=== PATIENT | male | born 1945 | race Caucasian/White ===

== ENCOUNTER 2020-11-26 05:40 | Outpatient (CLI) | payer MEDICARE, OTHER ==
[~2020-11-26] VITALS: Ht 182.9 cm; Wt 95.5 kg
[2020-11-26] MEDS ORDERED: PRAV40TA2 PO (13:13)
[2020-11-26] MEDS ORDERED: DILT240C53 PO (13:13)
[2020-11-26] MEDS ORDERED: OMEP20TA7 PO (13:13)
[2020-11-26] MEDS ORDERED: MULT-1061 PO (13:13)
== END 2020-11-26 13:17 | disposition home or self-care (01) ==
LOC: PREOP 05:40
PROVIDERS: ATTEND Specialist
DX: Z01.818 Encounter for other preprocedural examination (principal)

== ENCOUNTER 2020-11-28 06:21 | Day surgery (SDC) | payer MEDICARE, OTHER ==
[~2020-11-28] VITALS: Ht 182.9 cm; Wt 95.5 kg
[~2020-11-28 06:21] MED LIST: DILT240C53 PO; MULT-1061 PO; OMEP20TA7 PO; PRAV40TA2 PO
[2020-11-28] MEDS ORDERED: POVIDONE (BETADINE) OPHTH SOLN 5% 30 ML OP ONE (06:45)
[2020-11-28] MEDS ORDERED: MOXIFLOXACIN OPHTH SOLN 5 MG/ML 0.3 ML SYRINGE OP ONE (06:45)
[2020-11-28] MEDS ORDERED: MIDAZOLAM 2 MG/2 ML (VERSED) VIAL ONE (06:49)
[2020-11-28] MEDS: TETRACAINE 0.5% OPHTH SOLN 4 ML BTL (SINGLE DOSE ONLY) OU PRN ×4 (06:52→07:09)
[2020-11-28] MEDS: TROPICAMIDE 1% OPH SOLN (MYDRIACYL) 15 ML BTL OP SCH ×3 (06:59→07:09)
[2020-11-28] MEDS: PHENYLEPHRINE 10% OPHTH (NEO-SYN) 5 ML BTL OU SCH ×3 (06:59→07:09)
[2020-11-28 07:01] VITALS: BP 166/86
--- NOTE | 2020-11-28 07:45 | Ophthalmologist Pre-Op Note ---
Pre-Operative Progress Note H&P Reviewed The H&P was reviewed, patient examined and no changes noted. Date H&P Reviewed: Nov 28, 2020 Time H&P Reviewed: 07:45 Pre-Op Dx Cataract, Right Eye ALFRED RAND MD Nov 28, 2020 07:45
[2020-11-28] MEDS: LIDOCAINE PF 1% 2 ML VIAL IR PRN (07:54)
[2020-11-28] MEDS: TIMOLOL MALEATE 0.5% 5 ML (TIMOPTIC) BTL OU PRN (07:54)
[2020-11-28] MEDS ORDERED: acetaZOLAMIDE ER 500 MG CAP (DIAMOX SEQUELS) PO ONE (08:00)
--- NOTE | 2020-11-28 08:07 | Ophthalmology Operative Report ---
Cataract removal/placement IOL PREOPERATIVE DIAGNOSIS: Cataract Right Eye POSTOPERATIVE DIAGNOSIS: Cataract Right Eye PROCEDURE: Cataract removal and placement of posterior chamber implant, right eye SURGEON: Cooper Rand ANESTHESIA: Topical with sedation COMPLICATIONS: None ESTIMATED BLOOD LOSS: Minimal DESCRIPTION OF PROCEDURE: After proper informed consent was obtained, the patient, a 75 male, was taken to the Operating Room and the right eye was anesthetized with tetracaine. The right eye was then prepped and draped in the usual manner. A wire lid speculum was placed. A paracentesis was made at the left hand position. Preservative free lidocaine was injected into the anterior chamber followed by viscoelastic. A clear corneal incision was made in the temporal position. A capsulorrhexis was preformed and the central nuclear and cortical material were removed. The posterior capsule was polished and Ezio 22.0 AU00T0 IOL was placed into the capsular bag. The residual viscoelastic was aspirated and balanced saline solution was injected into the anterior chamber. Moxifloxacin was injected into the anterior chamber. The wound was checked and found to be water tight. The patient tolerated the procedure well without complications. COOPER RAND MD Nov 28, 2020 08:07
--- NOTE | 2020-11-28 08:08 | Anesthesia-General Post-Op ---
MAC Patient Condition Mental Status/LOC: Same as Preop Cardiovascular: Satisfactory Nausea/Vomiting: Absent Respiratory: Satisfactory Pain: Controlled Complications: Absent Post Op Complications Complications None Follow Up Care/Instructions Patient Instructions None needed. Anesthesiology Discharge Order Discharge Order Patient is doing well, no complaints, stable vital signs, no apparent adverse anesthesia problems. No complications reported per nursing. MADDISON SMITH CRNA Nov 28, 2020 08:08
[2020-11-28 08:11] VITALS: BP 146/84
== END 2020-11-28 08:14 ==
LOC: SDC 06:21
PROVIDERS: ATTEND Specialist
DX: H25.11 Age-related nuclear cataract, right eye (principal); I10 Essential (primary) hypertension; E78.00 Pure hypercholesterolemia, unspecified; Z79.899 Other long term (current) drug therapy; Z88.0 Allergy status to penicillin; Z87.891 Personal history of nicotine dependence
CPT/HCPCS: 66984; V2632

== ENCOUNTER 2020-12-12 06:13 | Day surgery (SDC) | payer MEDICARE, OTHER ==
[~2020-12-12] VITALS: Ht 182 cm; Wt 95.5 kg
[2020-12-12] MEDS ORDERED: POVIDONE (BETADINE) OPHTH SOLN 5% 30 ML OP ONE (06:15)
[2020-12-12] MEDS ORDERED: TIMOLOL MALEATE 0.5% 5 ML (TIMOPTIC) BTL OU PRN (06:15)
[2020-12-12] MEDS ORDERED: LIDOCAINE PF 1% 2 ML VIAL IR PRN (06:15)
[2020-12-12] MEDS ORDERED: MOXIFLOXACIN OPHTH SOLN 5 MG/ML 0.3 ML SYRINGE OP ONE (06:15)
[2020-12-12 06:20] VITALS: BP 165/74
[2020-12-12] MEDS: TETRACAINE 0.5% OPHTH SOLN 4 ML BTL (SINGLE DOSE ONLY) OU PRN ×4 (06:25→06:41)
[2020-12-12] MEDS ORDERED: MIDAZOLAM 2 MG/2 ML (VERSED) VIAL ONE (06:28)
[2020-12-12] MEDS: TROPICAMIDE 1% OPH SOLN (MYDRIACYL) 15 ML BTL OP SCH ×3 (06:31→06:41)
[2020-12-12] MEDS: PHENYLEPHRINE 10% OPHTH (NEO-SYN) 5 ML BTL OU SCH ×3 (06:31→06:41)
--- NOTE | 2020-12-12 07:20 | Ophthalmologist Pre-Op Note ---
Pre-Operative Progress Note H&P Reviewed The H&P was reviewed, patient examined and no changes noted. Date H&P Reviewed: Dec 12, 2020 Time H&P Reviewed: 07:20 Pre-Op Dx Cataract, Left Eye ALFRED RAND MD Dec 12, 2020 07:20
--- NOTE | 2020-12-12 07:41 | Ophthalmology Operative Report ---
Cataract removal/placement IOL PREOPERATIVE DIAGNOSIS: Cataract Left Eye POSTOPERATIVE DIAGNOSIS: Cataract Left Eye PROCEDURE: Cataract removal and placement of posterior chamber implant, left eye SURGEON: Cooper Rand ANESTHESIA: Topical with sedation COMPLICATIONS: None ESTIMATED BLOOD LOSS: Minimal DESCRIPTION OF PROCEDURE: After proper informed consent was obtained, the patient, a 75 male, was taken to the Operating Room and the left eye was anesthetized with tetracaine. The left eye was then prepped and draped in the usual manner. A wire lid speculum was placed. A paracentesis was made at the left hand position. Preservative free lidocaine was injected into the anterior chamber followed by viscoelastic. A clear corneal incision was made in the temporal position. A capsulorrhexis was preformed and the central nuclear and cortical material were removed. The posterior capsule was polished and an Ezio 21.5 AU00T0 was placed into the capsular bag. The residual viscoelastic was aspirated and balanced saline solution was injected into the anterior chamber. Moxifloxacin was injected into the anterior chamber. The wound was checked and found to be water tight. The patient tolerated the procedure well without complications. COOPER RAND MD Dec 12, 2020 07:41
--- NOTE | 2020-12-12 07:46 | Anesthesia-General Post-Op ---
MAC Patient Condition Mental Status/LOC: Same as Preop Cardiovascular: Satisfactory Nausea/Vomiting: Absent Respiratory: Satisfactory Pain: Controlled Complications: Absent Post Op Complications Complications None Follow Up Care/Instructions Patient Instructions None needed. Anesthesiology Discharge Order Discharge Order Patient is doing well, no complaints, stable vital signs, no apparent adverse anesthesia problems. No complications reported per nursing. MADDISON SMITH CRNA Dec 12, 2020 07:46
[2020-12-12 07:55] VITALS: BP 145/73
[2020-12-12] MEDS ORDERED: acetaZOLAMIDE ER 500 MG CAP (DIAMOX SEQUELS) PO ONE (08:00)
== END 2020-12-12 07:55 | disposition home or self-care (01) ==
LOC: SDC 06:13
PROVIDERS: ATTEND Specialist
DX: H25.12 Age-related nuclear cataract, left eye (principal); I10 Essential (primary) hypertension; E78.00 Pure hypercholesterolemia, unspecified; Z88.0 Allergy status to penicillin; Z79.899 Other long term (current) drug therapy; Z90.49 Acquired absence of other specified parts of digestive tract; Z98.890 Other specified postprocedural states; Z87.891 Personal history of nicotine dependence; Z90.89 Acquired absence of other organs; Z96.619 Presence of unspecified artificial shoulder joint; Z83.3 Family history of diabetes mellitus
CPT/HCPCS: 66984; V2632